=== PATIENT | female | born 1960 | race Caucasian/White ===

== ENCOUNTER 2022-02-14 22:00 | Inpatient (IN) | payer MEDICAID, OTHER ==
[~2022-02-14] VITALS: Ht 154.9 cm; Wt 69.9 kg
[2022-02-15] MEDS ORDERED: METRONIDAZOLE 500 MG PREMIX 100 ML IV ONE (00:15)
[2022-02-15] MEDS ORDERED: VANCOMYCIN 1G PREMIX 200 ML IV ONE (00:15)
[2022-02-15] MEDS ORDERED: LEVOFLOXACIN 750MG PREMIX 150 ML IV ONE (00:15)
[2022-02-15 00:56] LABS: CHLORIDE 105 mEq/L (98-107)
[2022-02-15 01:11] LABS: BASOPHILS % 0.8 % (0.0-2.0); EOSINOPHILS % 0.9 % (0.0-5.0); HEMATOCRIT. 39.6 % (36.0-48.0); HEMOGLOBIN. 13.7 g/dL (12.0-16.0); LYMPHOCYTES % 28.2 % (20.0-50.0); MEAN CORPUSCULAR HEMOGLOBIN 30.6 pg (28.0-32.0); MEAN CORPUSCULAR VOLUME 88.3 fL (81.0-99.0); MEAN PLATELET VOLUME 7.8 fl (7.4-10.4); MONOCYTES % 6.6 % (2.0-8.0); NEUTROPHILS % 63.5 % (40.0-76.0); PLATELET 300 x1000/uL (130-400); RED BLOOD CELL COUNT 4.49 mill/uL (4.2-5.4); RED CELL DISTRIBUTION WIDTH 13.3 % (11.6-14.6)
[2022-02-15] MEDS ORDERED: ACETAMINOPHEN 325MG TABLET PO ONE (01:30)
[2022-02-15 01:50] LABS: PROTHROMBIN TIME 10.3 sec (9.6-11.0)
[2022-02-15] MEDS ORDERED: LEVOFLOXACIN 750MG PREMIX 150 ML IV NR (04:15)
[2022-02-15] MEDS ORDERED: METRONIDAZOLE 500 MG PREMIX 100 ML IV NR (04:15)
[2022-02-15] MEDS ORDERED: FAMOTIDINE 20MG/2ML VIAL IV ONE (05:00)
[2022-02-15] MEDS ORDERED: DIPHENHYDRAMINE 50MG/ML VIAL IV ONE (05:00)
[2022-02-15] MEDS ORDERED: METHYLPREDNISOLONE SOD SUCC 125 MG/2 ML VIAL IV ONE (05:00)
[2022-02-15] MEDS ORDERED: DOCUSATE SODIUM 100MG CAPSULE PO PRN (10:30)
[2022-02-15] MEDS ORDERED: IPRATROPIUM/ALBUTEROL 0.5-3(2.5)MG/3ML NEB HHN PRN (10:30)
[2022-02-15] MEDS ORDERED: DIPHENHYDRAMINE 50MG/ML VIAL IV PRN (10:30)
[2022-02-15] MEDS ORDERED: CLONIDINE 0.1MG TABLET PO PRN (10:30)
[2022-02-15] MEDS ORDERED: ONDANSETRON HCL 4MG/2ML INJ IV PRN (10:30)
[2022-02-15] MEDS ORDERED: LORAZEPAM 0.5MG TABLET PO PRN (10:30)
[2022-02-15] MEDS ORDERED: ACETAMINOPHEN 325MG TABLET PO PRN (10:30)
[2022-02-15] MEDS ORDERED: NALOXONE HCL 0.4MG/ML VIAL IV PRN (10:45)
[2022-02-15] MEDS: HYDROCODONE/ACETAMINOPHEN 5/325MG TABLET PO PRN ×3 (11:19→23:03)
[2022-02-15] MEDS: FAMOTIDINE 20MG TABLET PO SCH (21:23)
[2022-02-16 03:59] VITALS: BP 118/64
[2022-02-16] MEDS ORDERED: GLIP10TA10 MT (03:59)
[2022-02-16] MEDS ORDERED: METF-874 MT (03:59)
[2022-02-16] MEDS ORDERED: LISI40TA13 MT (03:59)
[2022-02-16] MEDS ORDERED: LEVO100T MT (05:10)
[2022-02-16] MEDS: HYDROCODONE/ACETAMINOPHEN 5/325MG TABLET PO PRN ×2 (05:50→17:16)
[2022-02-16] MEDS: BLOOD SUGAR DIAGNOSTIC STRIP TEST SCH ×4 (06:30→21:00)
[2022-02-16] MEDS ORDERED: DEXTROSE 50% WATER 50ML SYRINGE IV PRN (06:30)
[2022-02-16] MEDS: INSULIN LISPRO 100 UNITS/ML SUBCUT SCH ×4 (07:50→21:16)
[2022-02-16 08:00] VITALS: BP 115/64
[2022-02-16] MEDS: FAMOTIDINE 20MG TABLET PO SCH ×2 (09:00→20:55)
[2022-02-16] MEDS: PREDNISONE 10MG TABLET PO SCH (09:00)
[2022-02-16 12:00] VITALS: BP 138/76
[2022-02-16 12:40] LABS: BASOPHILS % 0.2 % (0.0-2.0); EOSINOPHILS % 0.4 % (0.0-5.0); HEMATOCRIT. 38.5 % (36.0-48.0); HEMOGLOBIN. 13.3 g/dL (12.0-16.0); MEAN CORPUSCULAR HEMOGLOBIN 30.4 pg (28.0-32.0); MEAN CORPUSCULAR VOLUME 87.7 fL (81.0-99.0); MEAN PLATELET VOLUME 7.5 fl (7.4-10.4); MONOCYTES % 5.6 % (2.0-8.0); NEUTROPHILS % 80.8 % (40.0-76.0); PLATELET 269 x1000/uL (130-400); RED BLOOD CELL COUNT 4.39 mill/uL (4.2-5.4); RED CELL DISTRIBUTION WIDTH 13.2 % (11.6-14.6)
[2022-02-16 13:11] LABS: CHLORIDE 99 mEq/L (98-107)
[2022-02-16] MEDS ORDERED: IPRATROPIUM BROMIDE (0.02%) 0.5MG/2.5ML NEB HHN PRN (13:30)
[2022-02-16] MEDS ORDERED: ALBUTEROL (0.083%) 2.5MG/3ML NEB HHN PRN (13:30)
[2022-02-16 16:00] VITALS: BP 115/65
[2022-02-16 20:00] VITALS: BP 117/60
[2022-02-16] MEDS ORDERED: VANCOMYCIN 1.25GM PMX (XELLIA) 250 ML IV NR (20:00)
[2022-02-17] VITALS: BP 120/62
[2022-02-17] MEDS: ACETAMINOPHEN 325MG TABLET PO PRN (06:47)
[2022-02-17] MEDS: INSULIN LISPRO 100 UNITS/ML SUBCUT SCH ×4 (07:50→21:40)
[2022-02-17 08:00] VITALS: BP 114/64
[2022-02-17] MEDS: BLOOD SUGAR DIAGNOSTIC STRIP TEST SCH ×4 (08:15→21:00)
[2022-02-17] MEDS: PREDNISONE 10MG TABLET PO SCH (08:16)
[2022-02-17] MEDS: VANCOMYCIN 750MG PREMIX 150 ML IV SCH ×2 (08:16→21:43)
[2022-02-17] MEDS: FAMOTIDINE 20MG TABLET PO SCH ×2 (08:16→21:37)
[2022-02-17] MEDS ORDERED: VANCOMYCIN 1G PREMIX 200 ML IV SCH (09:00)
[2022-02-17] MEDS ORDERED: BUPIVACAINE HCL/PF 0.25% (2.5MG/ML) 10ML INFIL NR (11:00)
[2022-02-17] MEDS ORDERED: LIDOCAINE HCL 1% 20ML VIAL (Pyxis) INJ INFIL NR (11:00)
[2022-02-17 16:29] VITALS: BP 132/77
[2022-02-17] MEDS: HYDROCODONE/ACETAMINOPHEN 5/325MG TABLET PO PRN (21:37)
[2022-02-18] MEDS: HYDROCODONE/ACETAMINOPHEN 5/325MG TABLET PO PRN ×5 (01:54→23:30)
[2022-02-18] MEDS: BLOOD SUGAR DIAGNOSTIC STRIP TEST SCH ×4 (06:50→21:53)
[2022-02-18 07:25] LABS: CHLORIDE 103 mEq/L (98-107)
[2022-02-18 08:00] VITALS: BP 143/75
[2022-02-18] MEDS: PREDNISONE 10MG TABLET PO SCH (08:57)
[2022-02-18] MEDS: FAMOTIDINE 20MG TABLET PO SCH ×2 (08:57→21:25)
[2022-02-18] MEDS: VANCOMYCIN 750MG PREMIX 150 ML IV SCH ×2 (09:00→21:25)
[2022-02-18] MEDS: INSULIN LISPRO 100 UNITS/ML SUBCUT SCH ×4 (09:12→21:45)
[2022-02-18 12:00] VITALS: BP 153/75
[2022-02-18] MEDS: LEVOTHYROXINE SODIUM 125MCG TABLET PO SCH (13:36)
[2022-02-18 16:00] VITALS: BP 131/77
[2022-02-18 16:33] LABS: BASOPHILS % 0.4 % (0.0-2.0); HEMATOCRIT. 37.1 % (36.0-48.0); HEMOGLOBIN. 12.8 g/dL (12.0-16.0); LYMPHOCYTES % 15.4 % (20.0-50.0); MEAN CORPUSCULAR HEMOGLOBIN 30.2 pg (28.0-32.0); MEAN CORPUSCULAR VOLUME 87.6 fL (81.0-99.0); MEAN PLATELET VOLUME 7.7 fl (7.4-10.4); MONOCYTES % 2.6 % (2.0-8.0); NEUTROPHILS % 81.6 % (40.0-76.0); PLATELET 279 x1000/uL (130-400); RED BLOOD CELL COUNT 4.23 mill/uL (4.2-5.4)
[2022-02-19] VITALS: BP 137/70
[2022-02-19 04:00] VITALS: BP 144/75
[2022-02-19] MEDS: HYDROCODONE/ACETAMINOPHEN 5/325MG TABLET PO PRN ×3 (06:25→22:53)
[2022-02-19] MEDS: BLOOD SUGAR DIAGNOSTIC STRIP TEST SCH ×4 (06:55→21:37)
[2022-02-19 08:00] VITALS: BP 147/68
[2022-02-19] MEDS: VANCOMYCIN 750MG PREMIX 150 ML IV SCH ×2 (08:22→21:30)
[2022-02-19] MEDS: FAMOTIDINE 20MG TABLET PO SCH ×2 (08:22→21:38)
[2022-02-19] MEDS: PREDNISONE 10MG TABLET PO SCH (08:23)
[2022-02-19] MEDS: LEVOTHYROXINE SODIUM 125MCG TABLET PO SCH (08:23)
[2022-02-19] MEDS: INSULIN LISPRO 100 UNITS/ML SUBCUT SCH ×4 (09:10→21:37)
[2022-02-19] MEDS: ACETAMINOPHEN 325MG TABLET PO PRN (13:09)
[2022-02-19 16:00] VITALS: BP 142/98
[2022-02-19] MEDS: AZTREONAM 2 GM in DEXT 5% WATER 100 ML IV SCH ×2 (18:10→23:22)
[2022-02-19 20:00] VITALS: BP 140/77
[2022-02-20 04:00] VITALS: BP 152/74
[2022-02-20] MEDS: BLOOD SUGAR DIAGNOSTIC STRIP TEST SCH ×4 (06:35→20:49)
[2022-02-20 08:00] VITALS: BP 144/71
[2022-02-20] MEDS: AZTREONAM 2 GM in DEXT 5% WATER 100 ML IV SCH ×2 (08:12→17:23)
[2022-02-20] MEDS: FAMOTIDINE 20MG TABLET PO SCH ×2 (08:13→20:04)
[2022-02-20] MEDS: LEVOTHYROXINE SODIUM 125MCG TABLET PO SCH (08:13)
[2022-02-20] MEDS: PREDNISONE 10MG TABLET PO SCH (08:13)
[2022-02-20] MEDS: VANCOMYCIN 750MG PREMIX 150 ML IV SCH ×2 (10:00→20:05)
[2022-02-20] MEDS: HYDROCODONE/ACETAMINOPHEN 5/325MG TABLET PO PRN (10:00)
[2022-02-20] MEDS: INSULIN LISPRO 100 UNITS/ML SUBCUT SCH ×4 (10:15→20:48)
[2022-02-20 12:00] VITALS: BP 145/77
[2022-02-20 16:00] VITALS: BP 145/77
[2022-02-20 20:00] VITALS: BP 135/72
[2022-02-20] MEDS: SULFAMETHOXAZOLE/TRIMETHOPRIM 800/160MG TABLET PO SCH (20:04)
[2022-02-21] VITALS: BP 111/82
[2022-02-21 04:00] VITALS: BP 115/78
[2022-02-21] MEDS: BLOOD SUGAR DIAGNOSTIC STRIP TEST SCH ×2 (07:19→12:26)
[2022-02-21] MEDS: INSULIN LISPRO 100 UNITS/ML SUBCUT SCH ×2 (07:34→12:57)
[2022-02-21 08:00] VITALS: BP 147/77
[2022-02-21] MEDS: SULFAMETHOXAZOLE/TRIMETHOPRIM 800/160MG TABLET PO SCH (08:23)
[2022-02-21] MEDS: PREDNISONE 10MG TABLET PO SCH (08:23)
[2022-02-21] MEDS: FAMOTIDINE 20MG TABLET PO SCH (08:23)
[2022-02-21] MEDS: VANCOMYCIN 750MG PREMIX 150 ML IV SCH (08:24)
[2022-02-21] MEDS: LEVOTHYROXINE SODIUM 125MCG TABLET PO SCH (08:28)
[2022-02-21] MEDS: ACETAMINOPHEN 325MG TABLET PO PRN (10:46)
[2022-02-21] MEDS ORDERED: LINE600T14 MT (11:40)
[2022-02-21] MEDS ORDERED: TOPUD PO (11:40)
[2022-02-21] MEDS ORDERED: SULF1TAB48 MT (11:40)
[2022-02-21 12:00] VITALS: BP 143/81
[2022-02-21 14:48] VITALS: BP 143/81
[2022-02-21 16:00] VITALS: BP 128/75
== END 2022-02-21 16:06 | disposition home or self-care (01) | DRG 623 ==
LOC: ER 22:00 → MICUSO 02-15 03:40 → EDBEDREQTM 02-15 03:54 → EDBEDREQ 02-15 03:54 → 6EST 02-16 04:46
PROVIDERS: ADMIT Internal Medicine; ATTEND Internal Medicine
PROC: 0LBW0ZZ Excision of Left Foot Tendon, Open Approach (ICD-10-PCS; principal; 2022-02-17)
DX: E11.628 Type 2 diabetes mellitus with other skin complications (principal); L02.612 Cutaneous abscess of left foot; L03.116 Cellulitis of left lower limb; E11.621 Type 2 diabetes mellitus with foot ulcer; E11.65 Type 2 diabetes mellitus with hyperglycemia; E03.9 Hypothyroidism, unspecified; I10 Essential (primary) hypertension; L97.509 Non-pressure chronic ulcer of other part of unspecified foot with unspecified severity; R13.10 Dysphagia, unspecified; Z79.4 Long term (current) use of insulin; Z88.0 Allergy status to penicillin; Z88.8 Allergy status to other drugs, medicaments and biological substances
CPT/HCPCS: 36415; 73590; 73630; 73718; 80048; 80053; 80202; 82962; 83036; 84145; 84443; 85025; 85651; 86141; 87070; 87075; 87077; 87186; 93923; 97162; 99285; J1815; J1956; J3370; J3490; J7060; J7512